=== PATIENT | male | born 1965 | race Caucasian/White ===

== ENCOUNTER 2017-01-11 21:46 | Emergency (ER) | payer MEDICAID, OTHER ==
[~2017-01-11] VITALS: Ht 172.7 cm; Wt 80.4 kg
[2017-01-11 22:08] VITALS: Ht 172.7 cm; Wt 80.4 kg
--- NOTE | 2017-01-11 22:56 | ERD ---
ER Documentation Chief Complaint Date/Time DATE: 01/11/17 TIME: 22:52 Chief Complaint fell at 1800 from a 4 foot HPI 42-year-old male presents in emergency department for complaints of neck pain, upper back pain, mid chest pain after falling off for 3 stairs today. Patient tripped and fell, landed on the chest and upper back area, did not lose consciousness after the injury. Patient is complaining of neck pain upper back pain he chest pain, throbbing pain,6/10 scale, worse upon taking a deep breath and movement. Patient did not take any medications up and symptoms. Patient denies any nausea or vomiting. Patient denies any dizziness. Patient denies any shortness of breath. Patient denies any cough. Patient denies any other joint pains. ROS All systems reviewed and are negative except as per history of present illness. Medications Home Meds Active Scripts Cyclobenzaprine Hcl* (Cyclobenzaprine Hcl*) 10 Mg Tablet, 10 MG PO TID for MUSCLE SPASMS, #15 TAB Prov:MEG CAN RISK MANAGEMENT DIRECTOR 01/11/17 Hydrocodone/Acetaminophen (Henry 5-325 Tablet) 1 Each Tablet, 1 TAB PO Q6H Y for SEVERE PAIN LEVEL 7-10, #20 TAB Prov:MEG CAN RISK MANAGEMENT DIRECTOR 01/11/17 Ibuprofen* (Motrin*) 600 Mg Tab, 600 MG PO Q6H Y for PAIN AND OR ELEVATED TEMP, #30 TAB Prov:MEG CNA RISK MANAGEMENT DIRECTOR 01/11/17 Reported Medications [none] Unknown Strength No Conflict Check 01/11/17 Allergies Allergies: Coded Allergies: No Known Allergy (Unverified , 01/11/17) PMhx/Soc Medical and Surgical Hx: pt denies Medical Hx, pt denies Surgical Hx FmHx Family History: No coronary disease, No diabetes, No other Physical Exam Vitals Vital Signs Date Time Temp Pulse Resp B/P Pulse Ox O2 Delivery O2 Flow Rate FiO2 01/11/17 22:08 98.3 105 18 155/99 97 Physical Exam GENERAL: The patient is well developed and appropriate for usual state of health, in no apparent distress. CHEST: Clear to auscultation bilaterally. There are no rales, wheezes or rhonchi. Tenderness on palpation mid chest area. HEART: Regular rate and rhythm. No murmurs, clicks, rubs or gallops. No S3 or S4. ABDOMEN: Soft, nontender and nondistended. Good bowel sounds. No rebound or guarding. No gross peritonitis. No gross organomegaly or masses. No Coffey sign or McBurney point tenderness. BACK: No midline or flank tenderness. Muscle spasms noted in the paraspinal aspect of the cervical spine and thoracic spine. Patient is able to do full range of motion of upper back and cervical spine without any restriction. EXTREMITIES: Equal pulses bilaterally. There is no peripheral clubbing, cyanosis or edema. No focal swelling or erythema. Full range of motion. Grossly neurovascularly intact. NEURO: Alert and oriented. Cranial nerves 2-12 intact. Motor strength in all 4 extremities with 5/5 strength. Sensation grossly intact. Normal speech and gait. SKIN: There is no apparent rash or petechia. The skin is warm and dry. HEMATOLOGIC AND LYMPHATIC: There is no evidence of excessive bruising or lymphedema. No gross cervical, axillary, or inguinal lymphadenopathy. Results 24 hrs EKG was done, read by me and is normal sinus rhythm at a rate of 94, normal axis , there is no ST changes or changes in the EKG that indicates any cardiac emergencies at this time. Patient's EKG was also reviewed by Dr. Tovar. Impression: no acute findings on EKG PROCEDURE: CT cervical spine without contrast. CLINICAL INDICATION: Trauma, neck pain. TECHNIQUE: A CT of the cervical spine was performed without intravenous contrast. Coronal and sagittal reformats were generated. CTDIvol: 22.44 mGy. DLP: 707.99 mGy-cm. COMPARISON: No prior studies are available for comparison. FINDINGS: There is straightening of the upper cervical lordosis. No spondylolisthesis is seen. The vertebral body heights are maintained. No fracture or subluxation is seen. The prevertebral soft tissues are normal. There is severe neural foraminal narrowings bilaterally at C5-C6 and on the left at C6-C7. There is mild spinal canal stenosis at C3-C4, C4-C5, and C6-C7 secondary to disk osteophyte complexes. There is moderate spinal canal stenosis at C5-C6 secondary to disk osteophyte complex. The soft tissue structures of the neck are unremarkable. IMPRESSION: 1. No fracture or subluxation of the cervical spine. 2. Straightening of the upper cervical lordosis. 3. Moderate spinal canal stenosis and C5-C6. 4. Mild spinal canal stenosis at C3-C4, C4-C5, and C6-C7. 5. Severe neural foraminal narrowings bilaterally at C5-C6 and on the left at C6-C7. RPTAT: HTAR .Petr Curran MD, Date Time Electronically viewed and signed by .Petr Curran MD, on 01/11/2017 23:12 .R/ CC: MEG CAN RISK MANAGEMENT DIRECTOR PROCEDURE: XR Chest. CLINICAL INDICATION: Chest pain following a fall TECHNIQUE: PA and lateral views of the chest were obtained. COMPARISON: None available FINDINGS: The trachea central bronchi are patent. The cardiomediastinal silhouette is within normal limits. The lungs are clear. No pleural effusion or pneumothorax is identified. The visualized osseous structures are intact. RPTAT:HJJR IMPRESSION: Unremarkable two-view chest x-ray. Physician Fannie Date Time Electronically viewed and signed by Physician Fannie on 01/11/2017 23:19 JR/ CC: MEG CAN RISK MANAGEMENT DIRECTOR PROCEDURE: CT thoracic spine without contrast CLINICAL INDICATION: Trauma. Pain. TECHNIQUE: CT scan of the thoracic spine was performed a multidetector scanner. No IV contrast was administered. Coronal and sagittal reformatted images were obtained from the axial source images. Exam CTDlvol = 29 mGy and DLP = 1212 mGy-cm. One of the following 3 dose reduction techniques were used: Automated exposure control; adjustment of the mA and/or kV according to patient size; or use of iterative reconstruction technique. COMPARISON: None available FINDINGS: Alignment remains intact. There is no spondylolithesis. There is a slight depression of the anterior superior endplates of the T2 and T8 vertebral bodies.. There is approximately 20% loss of height of the T2 vertebral body and 10% loss of height of the T8 vertebral body. There is no posterior retropulsion. There is maintenance of height of the remainder of the vertebral bodies. Schmorl's node in the superior endplate of T6 is present. Paravertebral soft tissues are unremarkable. IMPRESSION: 1. Likely acute mild wedge compression fractures of the T2 and T8 vertebral bodies, with slight anterior depression superior endplates of the vertebral body. 2. Schmorl's node superior endplate of the T6 vertebral body. RPTAT: HMVK .Vicente Ritter MD, MD Date Time Electronically viewed and signed by .Vicente Ritter MD, MD on 01/11/2017 23:20 .K/ CC: MEG CAN RISK MANAGEMENT DIRECTOR I discussed this case with my attending physician, Dr Tovar, patient's thoracic spine fracture stable at this time, minimal disc height change, no symptoms of neurovascular compromise, outpatient management was recommended by him with pain management. Strict return to Er precautions for any worsening symptoms. Procedures/MDM Medical Decision Making: Patient's pain is most likely consistent with a neck strain, chest wall contusion, and patient's upper back pain most likely consistent with thoracic compression fractures seen in the CT scan, this is stable at this time, as per discussion with my attending physician, Dr. Tovar , outpatient management is appropriate at this time with pain medication.. There is no suspicion for neurovascular compromise. Patient has intact sensation and circulation of the distal extremities. Low suspicion for cardiopulmonary emergencies at this time, lungs are clear, no suspicion for pericardial effusion, acute coronary syndrome. EKG is normal. Radiology exams of the affected area does not show any dislocation aside from the fracture only in the thoracic spine which is stable at this time.. Disposition: Home. Patient is given prescription for ibuprofen for pain, Henry for severe pain, Flexeril for muscle spasms. Patient was advised to avoid heavy lifting, apply ice on affected area, see orthopedic alteration specialist for further management and treatment. Patient was advised that if symptoms are worse , numbness, tingling, high fever, unable to move joint, worsening symptoms, to return to emergency department immediately. Otherwise, patient is advised to follow up with the primary care doctor in 3-5 days for reevaluation of symptoms. See alteration specialist within 3-5 days. Departure Diagnosis: Primary Impression: Neck sprain Encounter type: initial encounter Qualified Code: S13.9XXA - Neck sprain, initial encounter Additional Impressions: Thoracic spine fracture Encounter type: initial encounter Thoracic vertebra fracture level: unspecified thoracic vertebra Fracture type: closed Fracture morphology: wedge compression Qualified Code: S22.000A - Closed wedge fracture of thoracic vertebra, unspecified thoracic vertebral level, initial encounter Chest wall contusion Encounter type: initial encounter Laterality: unspecified laterality Qualified Code: S20.219A - Chest wall contusion, unspecified laterality, initial encounter Condition: Stable Patient Instructions: Fracture, Vertebral Compression Additional Instructions: Patient is given prescription for ibuprofen for pain, Henry for severe pain, Flexeril for muscle spasms. Patient was advised to avoid heavy lifting, apply ice on affected area, see orthopedic alteration specialist for further management and treatment. Patient was advised that if symptoms are worse, numbness, tingling, high fever, unable to move joint, worsening symptoms, to return to emergency department immediately. Otherwise, patient is advised to follow up with the primary care doctor in 3-5 days for reevaluation of symptoms. See alteration specialist within 3-5 days. MEG CAN NP Jan 11, 2017 22:56
--- NOTE | 2017-01-11 23:13 | RADRPT ---
PROCEDURE: CT cervical spine without contrast. CLINICAL INDICATION: Trauma, neck pain. TECHNIQUE: A CT of the cervical spine was performed without intravenous contrast. Coronal and sag ittal reformats were generated. CTDIvol: 22.44 mGy. DLP: 707.99 mGy-cm. COMPARISON: No prior studies are available for comparison. FINDINGS: There is straightening of the upper cervical lordosis. No spondylolisthesis is seen. The vertebral body heights are maintained. No fracture or subluxation is seen. The prevertebral soft tissues are normal. There is severe neural foraminal narrowings bilaterally at C5-C6 and on the left at C6-C7. There is mild spinal canal stenosis at C3-C4, C4-C5, and C6-C7 secondary to disk osteophyte complexe s. There is moderate spinal canal stenosis at C5-C6 secondary to disk osteophyte complex. The soft tissue structures of the neck are unremarkable. IMPRESSION: 1. No fracture or subluxation of the cervical spine. 2. Straightening of the upper cervical lordosis. 3. Moderate spinal canal stenosis and C5-C6. 4. Mild spinal canal stenosis at C3-C4, C4-C5, and C6-C7. 5. Severe neural foraminal narrowings bilaterally at C5-C6 and on the left at C6-C7. RPTAT: HTAR .Petr Curran MD, MD Date Time Electronically viewed and signed by .Petr Curran MD, MD on 01/11/2017 23:12 .R/
--- NOTE | 2017-01-11 23:20 | RADRPT ---
PROCEDURE: XR Chest. CLINICAL INDICATION: Chest pain following a fall TECHNIQUE: PA and lateral views of the chest were obtained. COMPARISON: None available FINDINGS: The trachea central bronchi are patent. The cardiomediastinal silhouette is within normal limits. The lungs are clear. No pleural effusion or pneumothorax is identified. The visualized osseous str uctures are intact. RPTAT:HJJR IMPRESSION: Unremarkable two-view chest x-ray. Physician Fannie Date Time Electronically viewed and signed by Nav Vaughan Physician on 01/11/2017 23:19 JR/
--- NOTE | 2017-01-11 23:21 | RADRPT ---
AMENDMENT: 01/11/2017 11:35:36 PM Vicente Ritter MD ADDENDUM: Corrected findings: There is approximately 20% loss of height of the T2 vertebral body and 10% loss of height of the T8 vertebral body PROCEDURE: CT thoracic spine without contrast CLINICAL INDICATION: Trauma. Pain. TECHNIQUE: CT scan of the thoracic spine was performed a multidetector scanner. No IV contrast wa s administered. Coronal and sagittal reformatted images were obtained from the axial source images. Exam CTDlvol = 29 mGy and DLP = 1212 mGy-cm. One of the following 3 dose reduction techniques we re used: Automated exposure control; adjustment of the mA and/or kV according to patient size; or us e of iterative reconstruction technique. COMPARISON: None available FINDINGS: Alignment remains intact. There is no spondylolithesis. There is a slight depression of the anteri or superior endplates of the T2 and T8 vertebral bodies.. There is approximately 820% loss of height of the T2 vertebral body and 10% loss of height of the T8 vertebral body. There is no posterior re tropulsion. There is maintenance of height of the remainder of the vertebral bodies. Schmorl's node in the superior endplate of T6 is present. Paravertebral soft tissues are unremarkable. IMPRESSION: 1. Likely acute mild wedge compression fractures of the T2 and T8 vertebral bodies, with slight ant erior depression superior endplates of the vertebral body. 2. Schmorl's node superior endplate of the T6 vertebral body. RPTAT: HMVK .Vicente Ritter MD, Date Time Electronically viewed and signed by .Vicente Ritter MD, MD on 01/11/2017 23:35 .K/
[2017-01-11] MEDS ORDERED: IBUP-1542 PO (23:41)
[2017-01-11] MEDS ORDERED: HYDR-906 PO (23:41)
[2017-01-11] MEDS ORDERED: CYCL-319 PO (23:41)
[2017-01-12 00:32] VITALS: BP 140/89; PULSE 95; RESP 19; TEMP 98.1
== END 2017-01-12 00:32 | disposition home or self-care (01) ==
LOC: FTE 21:46
DX: S22.000A Wedge compression fracture of unspecified thoracic vertebra, initial encounter for closed fracture (principal); S13.9XXA Sprain of joints and ligaments of unspecified parts of neck, initial encounter; S20.219A Contusion of unspecified front wall of thorax, initial encounter; R07.9 Chest pain, unspecified; W10.9XXA Fall (on) (from) unspecified stairs and steps, initial encounter; Y92.9 Unspecified place or not applicable
CPT/HCPCS: 71020; 72125; 72128; 93005; Z7502